=== PATIENT | male | born 1960 | race Caucasian/White ===

== ENCOUNTER 2017-04-05 19:50 | Observation (INO) | payer OTHER ==
--- NOTE | 2017-04-05 20:07 | PDOC ---
History of Present Illness - General History Source: Patient, Old Records Exam Limitations: No Limitations - History of Present Illness Initial Comments: 04/05/17 20:33 The patient is a 56 year old male, with a significant past medical history of chronic microcytic anemia, thalassemia, hypertension, hyperlipidemia and diabetes, who presents to the emergency department for evaluation with bilateral lower extremity edema, erythema and warmth. Over the past couple of days, the patient reports increased redness and warmth of the bilateral lower extremities. The patient reports that some of the sores on his lower extremities have been blistering and oozing with discharge so he decided to visit the ED for further evaluation. The patient denies fever or chills. PAST MEDICAL HISTORY: No significant history. PAST SURGICAL HISTORY: No significant history. FAMILY HISTORY: No pertinent history. SOCIAL HISTORY: Patient lives with family and is employed. MEDICATIONS: Reviewed. ALLERGIES: As per nursing notes. Adult ROS General: No fevers or chills, no weakness, no weight loss HEENT: No change in vision. No sore throat. No ear pain CardioVascular: No chest pain or shortness of breath Respiratory: No cough or wheezing. Gastrointestinal: No nausea, vomiting, diarrhea or constipation. No rectal bleeding Genitourinary: No dysuria, hematuria, or frequency Musculoskeletal: +Bilateral lower extremity edema. No joint or muscle pain Neurologic: No headache, vertigo, dizziness or loss of consciousness Psychiatric: No depression Skin: +Bilateral lower extremity erythema and warmth. No easy bruising Endocrine: No increased thirst or abnormal weight change Allergic: No skin or latex allergy All other systems reviewed and normal. Adult Exam: General: Well-nourished well-developed individual, no acute distress. HEENT: Throat: Normal, tonsils normal, no erythema or exudate. Neck: Supple, no meningeal signs, no lymphadenopathy. Eyes::Pupils equal reactive and round, extraocular motion intact. Chest: Nontender to palpation. Cardiac: S1-S2 normal, regular rate and rhythm, no murmurs rubs or gallops. Respiratory: Lungs clear to auscultation bilateral. Abdomen: Soft, nondistended, normal bowel sounds, nontender to palpation diffusely. Extremities: Warm, dry, no cyanosis or clubbing. Skin: Marked edema of the bilateral lower extremities extending to the thigh with venous stasis changes. There is an increase in erythema and warmth of the right lower extremity extending to the mid calf. There is an increase in erythema and warmth of the left lower extremity to the knee with an area of oozing and blistering of the skin. There is no purulence to the discharge. Discharge appears to be serosanguinous. Neuro: Alert and oriented x3, nonfocal exam, grossly intact, normal gait. Psych: Normal mood and affect. <Lani Irving - Last Filed: 04/05/17 20:36> - General History Source: Patient Exam Limitations: No Limitations <Lluvia Keys I - Last Filed: 04/05/17 22:42> - General Chief Complaint: Chronic pain Stated Complaint: LEG PAIN & SKIN SORES Time Seen by Provider: 04/05/17 20:06 Past History <Lani Irving - Last Filed: 04/05/17 20:36> - Past Medical History Anemia: Yes (thallasemia and chronic microcytic anemia) Cancer: No Cardiac Disorders: No Diabetes: Yes GI Disorders: Yes (RECTAL BLEEDING) HTN: Yes Hypercholesterolemia: Yes Liver Disease: No - Psycho/Social/Smoking Cessation Hx Anxiety: No Suicidal Ideation: No Smoking Status: Yes Smoking History: Current every day smoker Have you smoked in the past 12 months: Yes Number of Cigarettes Smoked Daily: 5 'Breaking Loose' booklet given: 04/24/16 Hx Alcohol Use: No Drug/Substance Use Hx: No Substance Use Type: None <Lluvia Keys I - Last Filed: 04/05/17 22:42> - Past Medical History Allergies/Adverse Reactions: Allergies Allergy/AdvReac Type Severity Reaction Status Date / Time saxagliptin HCl Allergy "HEART Verified 04/05/17 21:49 [From Onglyza] PAIN", MIGRAINES metformin AdvReac Intermediate Verified 04/05/17 21:49 generic hydrocodone Allergy Intermediate urticaria Uncoded 04/05/17 21:49 Home Medications: Ambulatory Orders Methylsulfonylmethane [Msm] 1,000 mg PO BID tablet 09/09/15 Cholecalciferol (Vitamin D3) [Vitamin D3] 2,000 unit PO BID tablet 03/31/16 Linagliptin/Metformin HCl [Jentadueto 2.5 Mg-1000 Mg Tab] 0.5 tab PO BID tablet 02/19/17 Carisoprodol [Soma] 350 mg PO BID 04/05/17 Gabapentin [Neurontin] 600 mg PO BID 04/05/17 Hydrocodone/Acetaminophen [Hydrocodon-Acetaminophn 10-325] 1 each PO TID Levothyroxine [Synthroid -] 200 mcg PO DAILY 04/05/17 Morphine Sulfate [Morphine Sulfate ER] 240 mg PO Q12H 04/05/17 ED Treatment Course - LABORATORY CBC & Chemistry Diagram: 04/05/17 20:40 04/05/17 20:40 <Lluvia Keys I - Last Filed: 04/05/17 22:42> *DC/Admit/Observation/Transfer - Attestations Scribe Attestion: 04/05/17 20:12 Documentation prepared by Lani Irving, acting as biomedical engineering aide for Lluvia Keys MD. <Lani Irving - Last Filed: 04/05/17 20:36> - Discharge Dispostion Admit: Yes <Lluvia Keys I - Last Filed: 04/05/17 22:42> Diagnosis at time of Disposition: Bilateral lower leg cellulitis - Discharge Dispostion Condition at time of disposition: Fair - Referrals
[2017-04-05 21:15] LABS: ALBUMIN 4.5 g/dl (3.5-5.0); ALK PHOS 76 U/L (32-92); ANION GAP 10 (8-16); BILIRUBIN,TOTAL 0.3 mg/dl (0.2-1.0); CALCIUM 10.2 mg/dl (8.4-10.2); CO2 27 mmol/L (22-28); CREATININE 0.9 mg/dl (0.6-1.3); GLUCOSE,RANDOM 271 mg/dl (74-106); SGOT/AST 26 U/L (10-42); SGPT/ALT 28 U/L (10-40); TOT PROT 7.9 g/dl (6.4-8.3)
[2017-04-05 21:16] LABS: MCHC 31.4 g/dl (32.0-35.9); MEAN CELL VOLUME 62.7 fl (80-96); PLATELET COUNT 243 K/MM3 (134-434); RDW 15.2 % (11.9-15.9); WHITE BLOOD COUNT 8.3 K/mm3 (4.0-10.8)
[2017-04-05 21:24] LABS: MCH 19.7 pg (25.7-33.7)
[2017-04-05] MEDS ORDERED: PIPERACILLIN/TAZOB 3.375 GM/50 ML PRE-DOCKED IVPB STA (21:26)
[2017-04-05] MEDS ORDERED: PIPERACILLIN/TAZOBACTAM 3.375 GM VIAL IVPB ONE (21:41)
[2017-04-05 22:40] LABS: HYPOCHROMIA 2+; MICROCYTOSIS 2+; PLATELET ESTIMATE ADEQUATE (NORMAL)
[2017-04-05 23:22] VITALS: BMI 33.5
[2017-04-05 23:45] VITALS: PULSE 93; TEMP 98.5
[2017-04-05] MEDS ORDERED: NABUMETONE 500 MG TABLET PO PRN (23:51)
[2017-04-05 23:52] LABS: CPK 367 IU/L (39-308)
[2017-04-06 00:02] LABS: TROPONIN I (DFP) < 0.03 ng/ml (0.03-0.50)
[2017-04-06 00:29] VITALS: BP 179/84
--- NOTE | 2017-04-06 00:57 | HP ---
CHIEF COMPLAINT: Swelling to B/L legs with redness PCP: [facility] HISTORY OF PRESENT ILLNESS: This is a 56 year old male with a past medical history significant for DM who presents with increased swelling and redness to his lower legs. Sent by his PCP. He reports pain in his lower legs and believes the infection is coming from his back. He denies new back pain, reports same chronic pain he has always had. 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 2 brothers ages 64 and 63, one with DM s/p amputation, other unknown Allergies saxagliptin HCl [From Onglyza] Allergy (Verified 04/05/17 21:49) "HEART PAIN", MIGRAINES metformin Adverse Reaction (Intermediate, Verified 04/05/17 21:49) generic hydrocodone Allergy (Intermediate, Uncoded 04/05/17 21:49) urticaria PT STATES LIFE THREATNING HOME MEDICATIONS: 3 Medication Instructions Recorded Methylsulfonylmethane [Msm] 1,000 mg PO BID tablet 09/09/15 Cholecalciferol (Vitamin D3) 2,000 unit PO BID tablet 03/31/16 [Vitamin D3] Linagliptin/Metformin HCl 0.5 tab PO BID tablet 02/19/17 [Jentadueto 2.5 Mg-1000 Mg Tab] Carisoprodol [Soma] 350 mg PO BID 04/05/17 Gabapentin [Neurontin] 600 mg PO BID 04/05/17 Hydrocodone/Acetaminophen 1 each PO TID 04/05/17 [Hydrocodon-Acetaminophn 10-325] Levothyroxine [Synthroid -] 200 mcg PO DAILY 04/05/17 Morphine Sulfate [Morphine Sulfate 240 mg PO Q12H 04/05/17 ER] REVIEW OF SYSTEMS CONSTITUTIONAL: Absent: fever, chills, diaphoresis, generalized weakness, malaise, loss of appetite, weight change HEENT: Absent: rhinorrhea, nasal congestion, throat pain, throat swelling, difficulty swallowing, mouth swelling, ear pain, eye pain, visual changes CARDIOVASCULAR: Present: peripheral edema Absent: chest pain, syncope, palpitations, irregular heart rate, lightheadedness RESPIRATORY: Absent: cough, shortness of breath, dyspnea with exertion, orthopnea, wheezing, stridor, hemoptysis GASTROINTESTINAL: Absent: abdominal pain, abdominal distension, nausea, vomiting, diarrhea, constipation, melena, hematochezia GENITOURINARY: Absent: dysuria, frequency, urgency, hesitancy, hematuria, flank pain, genital pain MUSCULOSKELETAL: Present: chronic back pain Absent: myalgia, arthralgia, joint swelling, neck pain SKIN: Present: erythema b/l LE Absent: rash, itching, pallor HEMATOLOGIC/IMMUNOLOGIC: Absent: easy bleeding, easy bruising, lymphadenopathy, frequent infections ENDOCRINE: Absent: unexplained weight gain, unexplained weight loss, heat intolerance, cold intolerance NEUROLOGIC: Absent: headache, focal weakness or paresthesias, dizziness, unsteady gait, seizure, mental status changes, bladder or bowel incontinence PSYCHIATRIC: Absent: anxiety, depression, suicidal or homicidal ideation, hallucinations. PHYSICAL EXAMINATION Vital Signs - 24 hr 3 04/05/17 04/05/17 04/05/17 19:52 22:13 23:24 Temperature 99.5 F 98.5 F 98.5 F Pulse Rate 102 H 93 H 93 H Respiratory 18 20 20 Rate Blood Pressure 121/72 179/84 179/84 O2 Sat by Pulse 96 Oximetry (%) GENERAL: Awake, alert, and fully oriented, in no acute distress. HEAD: Normal with no signs of trauma. EYES: Pupils equal, round and reactive to light, extraocular movements intact, sclera anicteric, conjunctiva clear. No lid lag. EARS, NOSE, THROAT: Ears normal, nares patent, oropharynx clear without exudates. Moist mucous membranes. NECK: Normal range of motion, supple without lymphadenopathy, JVD, or masses. LUNGS: Breath sounds equal, clear to auscultation bilaterally. No wheezes, and no crackles. No accessory muscle use. HEART: Regular rate and rhythm, normal S1 and S2 without murmur, rub or gallop. ABDOMEN: Soft, nontender, not distended, normoactive bowel sounds, no guarding, no rebound, no masses. No hepatomegaly or splenomegaly. MUSCULOSKELETAL: Normal range of motion at all joints. No bony deformities or tenderness. No CVA tenderness. UPPER EXTREMITIES: 2+ pulses, warm, well-perfused. No cyanosis. No clubbing. No peripheral edema. LOWER EXTREMITIES: 2+ pulses, warm, well-perfused. No calf tenderness. tr edema RLE, 1+ edema LLE, extending into posterior thigh. + erythema B/L LE, L>R, multiple small excoriations LLE draining serous fluid, no odor. + warm to touch NEUROLOGICAL: Cranial nerves II-XII intact. Normal speech. Normal gait. PSYCHIATRIC: Cooperative. Good eye contact. Appropriate mood and affect. SKIN: Warm, dry, normal turgor, no rashes noted, normal capillary refill. open sore noted suprapubic area Laboratory Results - last 24 hr 3 04/05/17 04/05/17 04/05/17 20:40 20:40 20:40 WBC 8.3 RBC 5.86 H Hgb 11.5 L Hct 36.7 MCV 62.7 L MCH 19.7 L MCHC 31.4 L RDW 15.2 Plt Count 243 D MPV 8.0 Neutrophils % Y Neutrophils % (Manual) 87 H Lymphocytes % Y Lymphocytes % (Manual) 9 Monocytes % (Manual) 2 L Eosinophils % (Manual) 2 Hypochromia 2+ Platelet Estimate Adequate Platelet Comment Few large plts Microcytosis 2+ Sodium 133 L Potassium 3.9 Chloride 96 L Carbon Dioxide 27 Anion Gap 10 BUN 17 Creatinine 0.9 Creat Clearance w eGFR > 60 Random Glucose 271 H D Calcium 10.2 Total Bilirubin 0.3 D AST 26 ALT 28 Alkaline Phosphatase 76 D Creatine Kinase 367 H Creatine Kinase Index 2.4 CK-MB (CK-2) 8.9 H Troponin I < 0.03 L B-Natriuretic Peptide 81.89 Total Protein 7.9 Albumin 4.5 ECG NSR, rate 84 QTC 444 inverted T waves V5-V6, more pronounced from ECG 09/06/16 ASSESSMENT/PLAN: 56yM with PMH HTN, HLD, DM, anemia, thalassemia, chronic back pain presented to the ED with increased swelling to B/L legs. Cellulitis B/L LE - start unasyn 3g q8h - monitor for improvement, if not improving then ID consult Venous stasis/leg edema - KIP wrap daily - lasix 40mg IVP daily - echo to r/o CHF ECG changes - minimal, denies SOB, chest pain, cardiac symptoms - troponin neg - no further intervention. f/u with PCP as outpatient HTN - consider DC norvasc, change to alternate therapy DM - home meds changed to formulary - monitor BGM ACHS with novolog sliding scale - A1c in AM chronic back pain - cont home medications DVT PPX - heparin 5000u TID FEN - defer IVF, tolerating po - BMP in am - low sodium/diabetic diet. Dispo: Pt currently requires inpatient observation for management of his emergent condition. Visit type - Emergency Visit Emergency Visit: Yes ED Registration Date: 04/05/17 Care time: The patient presented to the Emergency Department on the above date and was hospitalized for further evaluation of their emergent condition. - New Patient This patient is new to me today: Yes Date on this admission: 04/06/17 - Critical Care Critical Care patient: No
[2017-04-06] MEDS ORDERED: FUROSEMIDE 40 MG/4 ML INJECTABLE VIAL IVPUSH SCH (01:15)
[2017-04-06] MEDS ORDERED: FUROSEMIDE 40 MG/4 ML INJECTABLE VIAL ONE (01:28)
[2017-04-06] MEDS ORDERED: AMPICILLIN NA/SULBACTAM NA 100 ML IVPB SCH (02:00)
[2017-04-06] MEDS ORDERED: HEPARIN NA (PORCINE) 5,000 UNITS/ML 1ML VIAL SQ SCH (06:00)
[2017-04-06] MEDS ORDERED: INSULIN SLIDING SCALE (NOVOLOG) 1 VIAL SQ SCH ×2 (07:00→22:00)
[2017-04-06] MEDS ORDERED: LEVOTHYROXINE NA 200 MCG TABLET PO SCH ×2 (07:00→08:00)
--- NOTE | 2017-04-06 07:38 | PN ---
Physical Exam: SUBJECTIVE: Patient seen and examined OBJECTIVE: Vital Signs Period Temp Pulse Resp BP Sys/Shoemaker Pulse Ox Last 24 Hr 98.5 F 93 18-20 179/84 GENERAL: The patient is awake, alert, and fully oriented, in no acute distress. HEAD: Normal with no signs of trauma. EYES: PERRL, extraocular movements intact, sclera anicteric, conjunctiva clear. No ptosis. ENT: Ears normal, nares patent, oropharynx clear without exudates, moist mucous membranes. NECK: Trachea midline, full range of motion, supple. LUNGS: Breath sounds equal, clear to auscultation bilaterally, no wheezes, no crackles, no accessory muscle use. HEART: Regular rate and rhythm, S1, S2 without murmur, rub or gallop. ABDOMEN: Soft, nontender, nondistended, normoactive bowel sounds, no guarding, no rebound, no hepatosplenomegaly, no masses. EXTREMITIES: 2+ pulses, warm, well-perfused, no edema. NEUROLOGICAL: Cranial nerves II through XII grossly intact. Normal speech, gait not observed. PSYCH: Normal mood, normal affect. SKIN: Warm, dry, normal turgor, no rashes or lesions noted Active Medications Generic Name Dose Route Start Last Admin Trade Name Freq PRN Reason Stop Dose Admin Amlodipine Besylate 10 mg 04/06/17 08:00 Norvasc - PO DAILY@0800 [facility] Bacitracin 1 applic 04/06/17 10:00 Bacitracin - TP DAILY [facility] Cholecalciferol 2,000 unit 04/06/17 08:00 Vitamin D3 - PO BID@0800,1600 [facility] Furosemide 40 mg 04/06/17 01:15 04/06/17 01:35 Lasix Injection - IVPUSH 40 mg DAILY [facility] Administration Gabapentin 600 mg 04/06/17 08:00 Neurontin - PO BID@0800,1600 [facility] Glimepiride 2 mg 04/06/17 16:00 Amaryl - PO DAILY@1600 [facility] Glimepiride 4 mg 04/06/17 08:00 Amaryl - PO DAILY@0800 [facility] Heparin Sodium (Porcine) 5,000 unit 04/06/17 06:00 04/06/17 06:17 Heparin - SQ Not Given TID [facility] Ampicillin Sodium/Sulbactam Sodium 100 mls @ 200 mls/hr 04/06/17 02:00 02:24 Unasyn 3 Gm (Pre-Docked) IVPB 200 mls/hr Q8H-IV GLYNN Administration Insulin Aspart 1 vial 04/06/17 07:00 04/06/17 06:17 Novolog Vial Sliding Scale - SQ Not Given TIDAC [facility] Protocol Insulin Aspart 1 vial 04/06/17 22:00 Novolog Vial Sliding Scale - SQ HS [facility] Protocol Levothyroxine Sodium 200 mcg 04/06/17 07:45 Synthroid - PO DAILY@0700 [facility] Metformin HCl 500 mg 04/06/17 08:00 Glucophage - PO BID@0800,1630 [facility] Morphine Sulfate 240 mg 04/06/17 10:00 Ms Contin - PO BID [facility] Nabumetone 500 mg 04/05/17 23:51 Relafen - PO BID PRN PAIN Oxycodone/Acetaminophen 1 combo 04/06/17 00:00 04/06/17 01:00 Percocet 5/325 - PO 1 combo Q8H PRN Administration PAIN Pantoprazole Sodium 40 mg 04/06/17 08:00 Protonix - PO DAILY@0800 [facility] Sitagliptin Phosphate 25 mg 04/06/17 08:00 Januvia - PO DAILY@0800 [facility] ASSESSMENT/PLAN:
[2017-04-06] MEDS ORDERED: LEVOTHYROXINE NA 100 MCG TABLET (FP) PO SCH (07:45)
[2017-04-06] MEDS ORDERED: sitaGLIPtin PHOSPHATE 25 MG TABLET (FP) PO SCH (08:00)
[2017-04-06] MEDS ORDERED: GLIMEPIRIDE 4 MG TABLET (FP) PO SCH (08:00)
[2017-04-06] MEDS ORDERED: amLODIPine BESYLATE 10 MG TABLET (FP) PO SCH ×2 (08:00)
[2017-04-06] MEDS ORDERED: CHOLECALCIFEROL (VITAMIN D3) 1,000 UNIT TABLET (FP) PO SCH (08:00)
[2017-04-06] MEDS ORDERED: PANTOPRAZOLE 40 MG TABLET (FP) PO SCH ×2 (08:00)
[2017-04-06] MEDS ORDERED: metFORMIN HCL 500 MG TABLET (FP) PO SCH (08:00)
[2017-04-06] MEDS ORDERED: GABAPENTIN 300 MG CAPSULE (FP) PO SCH (08:00)
[2017-04-06] MEDS ORDERED: GLIMEPIRIDE 2 MG TABLET (FP) PO SCH ×2 (08:00→16:00)
--- NOTE | 2017-04-06 09:38 | DS ---
Physical Exam: SUBJECTIVE: patient is requesting discharge, RN reports patient is requesting his brand name of morphine and since the hospital does not carry the morphine brand name patient wants to go home to take his medication and walked out of the hospital. OBJECTIVE: This is a 56 year old male with a past medical history significant for DM who presents with increased swelling and redness to his lower legs. Sent by his PCP. He reports pain in his lower legs and believes the infection is coming from his back. He denies new back pain, reports same chronic pain he has always had. ER course was notable for: (1) WBC 8.3 (2) B/L venous sono with no obvious DVT Vital Signs Period Temp Pulse Resp BP Sys/Shoemaker Pulse Ox Last 24 Hr 98.5 F 93 18-20 179/84 PHYSICAL EXAM patient was discharged prior to physical exam LABS CBC WBC 8.3 K/mm3 (4.0-10.8) 04/05/17 20:40 RBC 5.86 M/mm3 (4.00-5.60) H 04/05/17 20:40 Hgb 11.5 GM/dl (11.7-16.9) L 04/05/17 20:40 Hct 36.7 % (35.4-49) 04/05/17 20:40 MCV 62.7 fl (80-96) L 04/05/17 20:40 MCH 19.7 pg (25.7-33.7) L 04/05/17 20:40 MCHC 31.4 g/dl (32.0-35.9) L 04/05/17 20:40 RDW 15.2 % (11.9-15.9) 04/05/17 20:40 Plt Count 243 K/MM3 (134-434) D 04/05/17 20:40 MPV 8.0 fl (7.5-11.1) 04/05/17 20:40 Neutrophils % Y 04/05/17 20:40 Neutrophils % (Manual) 87 % (42.8-82.8) H 04/05/17 20:40 Lymphocytes % Y 04/05/17 20:40 Lymphocytes % (Manual) 9 % (8-40) 04/05/17 20:40 Monocytes % (Manual) 2 % (3.8-10.2) L 04/05/17 20:40 Eosinophils % (Manual) 2 % (0-4.5) 04/05/17 20:40 Hypochromia 2+ 04/05/17 20:40 Platelet Estimate Adequate (NORMAL) 04/05/17 20:40 Platelet Comment Few large plts 04/05/17 20:40 Microcytosis 2+ 04/05/17 20:40 CMP Sodium 133 mmol/L (136-145) L 04/05/17 20:40 Potassium 3.9 mmol/L (3.5-5.1) 04/05/17 20:40 Chloride 96 mmol/L (98-107) L 04/05/17 20:40 Carbon Dioxide 27 mmol/L (22-28) 04/05/17 20:40 Anion Gap 10 (8-16) 04/05/17 20:40 BUN 17 mg/dl (7-18) 04/05/17 20:40 Creatinine 0.9 mg/dl (0.6-1.3) 04/05/17 20:40 Creat Clearance w eGFR > 60 (>60) 04/05/17 20:40 Random Glucose 271 mg/dl (74-106) H D 04/05/17 20:40 Calcium 10.2 mg/dl (8.4-10.2) 04/05/17 20:40 Total Bilirubin 0.3 mg/dl (0.2-1.0) D 04/05/17 20:40 AST 26 U/L (10-42) 04/05/17 20:40 ALT 28 U/L (10-40) 04/05/17 20:40 Alkaline Phosphatase 76 U/L (32-92) D 04/05/17 20:40 Creatine Kinase 367 IU/L (39-308) H 04/05/17 20:40 Creatine Kinase Index 2.4 % (0.0-5.0) 04/05/17 20:40 CK-MB (CK-2) 8.9 ng/mL (0.3-4.0) H 04/05/17 20:40 Troponin I < 0.03 ng/ml (0.03-0.50) L 04/05/17 20:40 B-Natriuretic Peptide 81.89 pg/ml (5-125) 04/05/17 20:40 Total Protein 7.9 g/dl (6.4-8.3) 04/05/17 20:40 Albumin 4.5 g/dl (3.5-5.0) 04/05/17 20:40 ECG NSR, rate 84 QTC 444 inverted T waves V5-V6, more pronounced from ECG 09/06/16 HOSPITAL COURSE 56yM with PMH HTN, HLD, DM, anemia, thalassemia, chronic back pain presented to the ED with increased swelling to B/L legs. * Cellulitis B/L LE, patient was started on unasyn 3g q8h * Venous stasis/leg edema, KIP wrap daily, lasix 40mg IVP daily * echo to r/o CHF-->pt declined * ECG changes, minimal, denies SOB, chest pain, cardiac symptoms, troponin neg , no further intervention. f/u with PCP as outpatient * hypertension, consider DC norvasc, change to alternate therapy * DM, home meds changed to formulary, monitor BGM ACHS with novolog sliding scale, A1c in AM * chronic back pain, continue home medications Problem Status Priority Diagnosed Code Bilateral lower leg cellulitis Acute L03.116, L03.115 Note: The patient insists on leaving the Hospital and is signing out against medical advice. Care being refused: The patient understands the risks and complications that may result from the refusal of medical care which may include and permanent disability. The patient has the mental capacity of understanding the risks of refusing care and is capable of making an informed decision. The patient was instructed to return to the Emergency Department should he change his mind regarding medical care or should his condition worsen. The patient signed the Against Medical Advice form. Date of Admission:04/05/17 Date of Discharge: 04/06/17 Minutes to complete discharge: 45 Discharge Summary Reason For Visit: LEG PAIN & SKIN SORES Current Active Problems Bilateral lower leg cellulitis (Acute) Condition: Fair - Instructions Referrals: Benji Burroughs MD [Primary Care Provider] - - Home Medications Comprehensive Discharge Medication List: Ambulatory Orders Methylsulfonylmethane [Msm] 1,000 mg PO BID tablet 09/09/15 Cholecalciferol (Vitamin D3) [Vitamin D3] 2,000 unit PO BID tablet 03/31/16 Linagliptin/Metformin HCl [Jentadueto 2.5 Mg-1000 Mg Tab] 0.5 tab PO BID tablet 02/19/17 Carisoprodol [Soma] 350 mg PO BID 04/05/17 Gabapentin [Neurontin] 600 mg PO BID 04/05/17 Hydrocodone/Acetaminophen [Hydrocodon-Acetaminophn 10-325] 1 each PO TID Levothyroxine [Synthroid -] 200 mcg PO DAILY 04/05/17 Morphine Sulfate [Morphine Sulfate ER] 240 mg PO Q12H 04/05/17 This patient is new to me today: Yes Date on this admission: 04/06/17 Emergency Visit: Yes ED Registration Date: 04/05/17 Care time: The patient presented to the Emergency Department on the above date and was hospitalized for further evaluation of their emergent condition. Critical Care patient: No - Discharge Referral Referred to [facility] Yes Physician Referral: Benji Burroughs MD (Int Med)
[2017-04-06] MEDS ORDERED: morphine SO4 SUSTAINED ACTING 30 MG TABLET.SA PO SCH (10:00)
[2017-04-06] MEDS ORDERED: BACITRACIN 15 GM TUBE TOPICAL OINTMENT TP SCH (10:00)
--- NOTE | 2017-04-06 19:26 | EKG ---
Test Reason : Blood Pressure : / mmHG Vent. Rate : 084 BPM Atrial Rate : 084 BPM P-R Int : 194 ms QRS Dur : 108 ms QT Int : 376 ms P-R-T Axes : 066 047 121 degrees QTc Int : 444 ms NORMAL SINUS RHYTHM INJURY ABNORMAL ECG NO PREVIOUS ECGS AVAILABLE CLINICAL CORRELATION AND FOLLOW UP TRACING IS RECOMMENDED Confirmed by RABIA BRUCE MD ([id number] on 04/06/2017 7:25:37 PM Referred By: HI Confirmed By:RABIA BRUCE MD
== END 2017-04-06 07:30 | disposition left against medical advice (07) ==
LOC: FER 19:50 → INTOOBSV 22:13 → FM/S 22:13
PROVIDERS: ADMIT Internal Medicine; ATTEND Nurse Practitioner Family
DX: L03.116 Cellulitis of left lower limb (principal); L03.115 Cellulitis of right lower limb; I87.8 Other specified disorders of veins; E11.9 Type 2 diabetes mellitus without complications; E78.5 Hyperlipidemia, unspecified; D50.9 Iron deficiency anemia, unspecified; D56.9 Thalassemia, unspecified; F17.210 Nicotine dependence, cigarettes, uncomplicated; Z88.8 Allergy status to other drugs, medicaments and biological substances; M54.5 Low back pain; G89.29 Other chronic pain; I10 Essential (primary) hypertension
CPT/HCPCS: 36415; 80053; 82553; 83880; 84484; 85025; 87040; 93005; 93970-TC; 99284-25; G0378

== ENCOUNTER 2017-04-06 11:27 | Emergency (ER) | payer OTHER ==
[2017-04-06 11:56] VITALS: BP 176/90; PULSE 97; TEMP 99; BMI 33.5
[2017-04-06] MEDS ORDERED: DALBAVANCIN HCL 1,500 MG in DEXTROSE 5%-WATER - 500 ML IVPB ONE (12:23)
--- NOTE | 2017-04-06 12:24 | PDOC ---
History of Present Illness - General Chief Complaint: Redness To Affected Area Stated Complaint: BLE REDNESS Time Seen by Provider: 04/06/17 11:32 History Source: Patient Exam Limitations: No Limitations - History of Present Illness Initial Comments: 04/06/17 12:24 56y M hx of thalassemia, htn, hl, dm, presents for LE edema/warmth. Pt states he has had intermittent warmth/redness in his LE, has been on several doses of abx in the past, that would sometimes help resolve. He endorses the redness was worse over the past few days, was actually seen in [facility] yesterday and admitted for IVAbx, but signed out AMA due to needing to home to get his narcotic meds. The pt states that his sypmtoms are actually a bit better, the redness/swelling and pain have all diminished. He denies any fever/chills, n/v, cp, abd pain, diarrhea, dysuria. FAMILY HISTORY: Noncontributory Past History - Past Medical History Allergies/Adverse Reactions: Allergies Allergy/AdvReac Type Severity Reaction Status Date / Time saxagliptin HCl Allergy "HEART Verified 04/06/17 11:30 [From Onglyza] PAIN", MIGRAINES metformin AdvReac Intermediate Verified 04/06/17 11:30 generic hydrocodone Allergy Intermediate urticaria Uncoded 04/06/17 11:30 Home Medications: Ambulatory Orders Methylsulfonylmethane [Msm] 1,000 mg PO BID tablet 09/09/15 Cholecalciferol (Vitamin D3) [Vitamin D3] 2,000 unit PO BID tablet 03/31/16 Linagliptin/Metformin HCl [Jentadueto 2.5 Mg-1000 Mg Tab] 0.5 tab PO BID tablet 02/19/17 Carisoprodol [Soma] 350 mg PO BID 04/05/17 Gabapentin [Neurontin] 600 mg PO BID 04/05/17 Hydrocodone/Acetaminophen [Hydrocodon-Acetaminophn 10-325] 1 each PO TID Levothyroxine [Synthroid -] 200 mcg PO DAILY 04/05/17 Morphine Sulfate [Morphine Sulfate ER] 240 mg PO Q12H 04/05/17 Anemia: Yes (thallasemia and chronic microcytic anemia) Asthma: No Cancer: No Cardiac Disorders: No CVA: No COPD: No CHF: No Dementia: No Diabetes: Yes GI Disorders: Yes (RECTAL BLEEDING) Disorders: No HTN: Yes Hypercholesterolemia: Yes Liver Disease: No Seizures: No Thyroid Disease: Yes Other medical history: CHRONIC BACK PAIN - Psycho/Social/Smoking Cessation Hx Anxiety: No Suicidal Ideation: No Smoking Status: Yes Smoking History: Current every day smoker Have you smoked in the past 12 months: Yes Number of Cigarettes Smoked Daily: 1 Information on smoking cessation initiated: Yes 'Breaking Loose' booklet given: 04/06/17 Hx Alcohol Use: No Drug/Substance Use Hx: Yes (PRESCRIBED NARCOTIC) Substance Use Type: None Hx Substance Use Treatment: No Review of Systems - Review of Systems Able to Perform ROS?: Yes Comments:: 04/06/17 12:35 Constitutional - no reported Fever, Chills, HEENT: no reported vision changes, sore throat Respiratory: no reported cough, sob, hemoptysis Cardiac: no reported chest pain, palpitations, light headedness, leg swelling Abd/GI: no reported abd pain, nausea, vomiting, blood per rectum, melena, diarrhea : no reported dysuria, frequency, discharge Musculskelatal - no reported back pain, joint swelling skin - +Bl LE edema/swelling (slightly improved) no reported bruising, neurological: no reported headache, numbness, focal weakness, tingling, ataxia, hematologic: no reported anemia, easy bruising, easy bleeding *Physical Exam - Vital Signs Last Vital Signs Temp Pulse Resp BP Pulse Ox 99 F 97 H 20 176/90 99 04/06/17 11:30 04/06/17 11:30 04/06/17 11:30 04/06/17 11:30 04/06/17 11:30 - Physical Exam Comments: 04/06/17 12:38 GENERAL: The patient is awake, alert, and fully oriented, Nontoxic - in no acute distress. HEAD: Normocephalic, atraumatic. EYES: extraocular movements intact, sclera anicteric, conjunctiva clear. ENT: Normal voice, Moist mucous membranes. NECK: Normal range of motion, supple LUNGS: Breath sounds equal, clear to auscultation bilaterally. No wheezes, no rhonchi, no rales. HEART: Regular rate and rhythm, normal S1 and S2 without murmur, rub or gallop. ABDOMEN: Soft, nontender, normoactive bowel sounds. No guarding, no rebound. . No CVA tenderness EXTREMITIES: mild edema of b/l LE with overlying erythema, no induration/ fcluctuance, +skin breakdown/clear serous discharge from lesions on L cespedes/ lateral calf, no pus noted. no calf tenderness. NEUROLOGICAL: No facial assymetry, Normal speech, normal gait. PSYCH: Normal mood, normal affect. SKIN: Warm, Dry, normal turgor, Medical Decision Making - Medical Decision Making 04/06/17 12:40 likely cellulitis overlying PVD no systemic compalints including fever/chills pt with blodo work yesterday which was noted for mild left shift w/o leukocytosis. will give a dose of delvance and have pt fu with PMD case dw dr. earl who agrees that this is a good case for dalvance will have pt fu with Dr. Burroughs in a few days for reassessment. *DC/Admit/Observation/Transfer Diagnosis at time of Disposition: Bilateral lower leg cellulitis - Discharge Dispostion Disposition: HOME Condition at time of disposition: Stable Admit: No - Referrals Referrals: Benji Burroughs MD [Staff Physician] - - Patient Instructions Printed Discharge Instructions: DI for Cellulitis -- Adult Additional Instructions: Return to the emergency department immediately with ANY new, persistent or worsening symptoms. You MUST call and follow up with Dr. Burroughs or Dr. Barron, for further evaluation of your symptoms. Results were discussed with you. Please make sure your doctor reviews the results of your emergency evaluation. If you had any xrays during your visit, it was read preliminarily by myself, a Radiologist will review it and if there are any additional findings we will call you.
== END 2017-04-06 13:56 | disposition home or self-care (01) ==
LOC: FER 11:27
DX: L03.116 Cellulitis of left lower limb (principal); L03.115 Cellulitis of right lower limb; F17.210 Nicotine dependence, cigarettes, uncomplicated; I10 Essential (primary) hypertension; E78.00 Pure hypercholesterolemia, unspecified; E03.9 Hypothyroidism, unspecified; E11.9 Type 2 diabetes mellitus without complications
CPT/HCPCS: 96365; 99281-25; J0875